=== PATIENT | male | born 1975 | race Caucasian/White ===

== ENCOUNTER 2018-03-02 22:06 | Emergency (ER) | payer MEDICAID ==
[~2018-03-02] VITALS: Ht 167.6 cm; Wt 81.0 kg
[~2018-03-02 22:06] MED LIST: FLO0.4C PO; NO HOME MEDS; ZOF4T PO
[2018-03-02 22:32] VITALS: BP 144/85
[2018-03-02] MEDS ORDERED: ketorolac trometh inj. 60 MG/2 ML VIAL IM ONE (23:00)
[2018-03-02] MEDS ORDERED: CLIN150C2 PO (23:07)
== END 2018-03-02 23:35 | disposition home or self-care (01) ==
LOC: ER 22:06
DX: L02.31 Cutaneous abscess of buttock (principal); L03.317 Cellulitis of buttock; Z90.49 Acquired absence of other specified parts of digestive tract; Z56.0 Unemployment, unspecified; Z79.899 Other long term (current) drug therapy
CPT/HCPCS: 96372; 99283; J1885

== ENCOUNTER 2018-11-13 23:53 | Emergency (ER) | payer MEDICAID ==
[~2018-11-13] VITALS: Ht 167.6 cm; Wt 80.0 kg
[2018-11-14] MEDS ORDERED: normal saline 1000ML IV soln IVB ONE ×2 (00:05)
[2018-11-14 00:46] LABS: BASOPHILS # (AUTO) 0.1 X10'3 (0-0.2); EOSINOPHILS # (AUTO) 0.2 X10'3 (0-0.9); EOSINOPHILS % (AUTO) 2.4 % (0-6); HEMATOCRIT 40.1 % (42.0-52.0); HEMOGLOBIN 13.5 g/dl (14.0-17.9); LYMPHOCYTES # (AUTO) 2.5 X10'3 (1.1-4.8); LYMPHOCYTES % (AUTO) 27.4 % (21-51); MEAN CORPUSCULAR HGB CONC 33.7 g/dL (33.0-36.5); MEAN CORPUSCULAR VOLUME 86.1 FL (78-98); MEAN PLATELET VOLUME 8.6 FL (7.4-10.4); MONOCYTES # (AUTO) 0.7 X10'3 (0-0.9); MONOCYTES % (AUTO) 7.2 % (2-12); NEUTROPHILS # (AUTO) 5.8 X10'3 (1.8-7.7); PLATELET COUNT 250 X10'3 (140-440); RED BLOOD COUNT 4.66 X10'6 (4.70-6.10); RED CELL DISTRIBUTION WIDTH 13.7 % (11.5-14.5); WHITE BLOOD COUNT 9.3 X10'3 (4.5-11.0)
[2018-11-14 00:58] LABS: ALANINE AMINOTRANSFERASE 27 U/L (12-78); ALBUMIN 3.9 G/DL (3.4-5.0); ALBUMIN/GLOBULIN RATIO 1.1 (1.1-1.5); ALKALINE PHOSPHATASE 113 IU/L (46-116); ANION GAP 7 (8-16); ASPARTATE AMINO TRANSFERASE 6 U/L (10-37); BILIRUBIN,TOTAL 0.3 MG/DL (0.1-1.0); BLOOD UREA NITROGEN 13 MG/DL (7-18); BUN/CREATININE RATIO 10.9 (5.4-32.0); CALCIUM 8.8 MG/DL (8.5-10.1); CHLORIDE 95 MMOL/L (99-107); CREATININE 1.19 MG/DL (0.60-1.10); POTASSIUM 4.1 MMOL/L (3.5-5.1); SODIUM 128 MMOL/L (135-145); TOTAL CARBON DIOXIDE 26.1 MMOL/L (24-32); TOTAL PROTEIN 7.3 G/DL (6.4-8.2); TROPONIN I < 0.04 NG/ML (0.0-0.05); eGFR 68 ML/MIN
[2018-11-14 00:58] LABS: CLARITY,URINE CLEAR (Clear); COLOR,URINE YELLOW (Yellow); GLUCOSE, URINE >=1000 mg/dl (Neg); KETONES,URINE NEGATIVE (Neg); LEUKOCYTE ESTERASE ,URINE NEGATIVE (Neg); NITRITES, URINE NEGATIVE (Neg); OCCULT BLOOD,URINE NEGATIVE (Neg); PH,URINE 5.5 (4.8-8.0); PROTEIN,URINE NEGATIVE (Neg); UROBILINOGEN,URINE 0.2 E.U/dL (0.2-1.0)
[2018-11-14 01:02] LABS: UA COLLECTION TYPE CLN CATCH MIDSTREAM
[2018-11-14 01:03] LABS: GLUCOSE 622 MG/DL (70-104)
[2018-11-14 01:04] LABS: BACTERIA,URINE NONE SEEN /HPF (Neg); RBC,URINE 0-2 /HPF (0-2); SQUAMOUS EPITHELIAL CELL,UR FEW /LPF (FEW); WBC,URINE NONE SEEN /HPF (0-4)
[2018-11-14] MEDS ORDERED: insulin regular, human 10 units/0.1 ml syringe IV ONE ×2 (01:05→03:05)
[2018-11-14] MEDS ORDERED: potassium Cl 20 mEq SR tablet PO STA (03:03)
[2018-11-14] MEDS ORDERED: normal saline 1000ml 1,000 ML IV ONE (03:05)
[2018-11-14] MEDS ORDERED: METF500T PO (03:08)
--- NOTE | 2018-11-14 03:32 | NUR ---
pt complAINING OF SOB, CHEST TIGHTNESS, AND PINS AND NEEDLES FEELING TO HANDS, REPEAT EKG PERFORMED AND DR STALLWORTH NOTIFIED.
[2018-11-14] MEDS ORDERED: LORazepam 2 mg/ml vial IV ONE (03:35)
--- NOTE | 2018-11-14 03:45 | NUR ---
PT STATES THE ANXIOUS FEELING HAS PASSED AND DENIES ANY FURTHER NEED FOR MEDICATION OR TREATMENT AT THIS TIME.
[2018-11-14 03:57] VITALS: BP 127/81
== END 2018-11-14 04:01 | disposition home or self-care (01) ==
LOC: ER 23:54
DX: E11.65 Type 2 diabetes mellitus with hyperglycemia (principal); Z86.19 Personal history of other infectious and parasitic diseases; Z87.442 Personal history of urinary calculi; Z90.49 Acquired absence of other specified parts of digestive tract; Z56.0 Unemployment, unspecified; Z79.84 Long term (current) use of oral hypoglycemic drugs; Z79.899 Other long term (current) drug therapy
CPT/HCPCS: 36415; 71045; 80053; 81001; 82948; 84484; 85025; 93005; 96361; 96374; 96376; 99284; J1815; J7030

== ENCOUNTER 2018-12-17 03:03 | Emergency (ER) | payer MEDICAID ==
[2018-12-17] MEDS ORDERED: normal saline 1000ML IV soln IVB ONE ×2 (03:20)
--- NOTE | 2018-12-17 03:29 | NUR ---
PT ASKING FOR WATER. SPOKE WITH MD, WATER GIVEN
[2018-12-17 03:30] LABS: BASOPHILS # (AUTO) 0.1 X10'3 (0-0.2); EOSINOPHILS # (AUTO) 0.2 X10'3 (0-0.9); HEMATOCRIT 41.2 % (42.0-52.0); HEMOGLOBIN 13.8 g/dl (14.0-17.9); MEAN CORPUSCULAR HEMOGLOBIN 28.8 PG (27.0-31.0); MEAN CORPUSCULAR HGB CONC 33.6 g/dL (33.0-36.5); MEAN CORPUSCULAR VOLUME 85.7 FL (78-98); MEAN PLATELET VOLUME 7.7 FL (7.4-10.4); MONOCYTES # (AUTO) 0.6 X10'3 (0-0.9); MONOCYTES % (AUTO) 8.8 % (2-12); NEUTROPHILS # (AUTO) 4.3 X10'3 (1.8-7.7); NEUTROPHILS % (AUTO) 59.2 % (42-75); PLATELET COUNT 271 X10'3 (140-440); RED BLOOD COUNT 4.81 X10'6 (4.70-6.10); RED CELL DISTRIBUTION WIDTH 13.6 % (11.5-14.5); WHITE BLOOD COUNT 7.3 X10'3 (4.5-11.0)
[2018-12-17 03:42] LABS: ALANINE AMINOTRANSFERASE 25 U/L (12-78); ALBUMIN/GLOBULIN RATIO 1.1 (1.1-1.5); ALKALINE PHOSPHATASE 113 IU/L (46-116); ANION GAP 9 (8-16); ASPARTATE AMINO TRANSFERASE 7 U/L (10-37); BILIRUBIN,TOTAL 0.3 MG/DL (0.1-1.0); BLOOD UREA NITROGEN 11 MG/DL (7-18); BUN/CREATININE RATIO 9.6 (5.4-32.0); CHLORIDE 100 MMOL/L (99-107); CREATININE 1.15 MG/DL (0.60-1.10); POTASSIUM 4.1 MMOL/L (3.5-5.1); SODIUM 135 MMOL/L (135-145); TOTAL CARBON DIOXIDE 25.7 MMOL/L (24-32); TOTAL PROTEIN 7.6 G/DL (6.4-8.2); eGFR 70 ML/MIN
[2018-12-17 03:44] LABS: GLUCOSE 489 MG/DL (70-104)
[2018-12-17 04:25] VITALS: BP 126/80
== END 2018-12-17 04:27 | disposition home or self-care (01) ==
LOC: ER 03:03
DX: E11.65 Type 2 diabetes mellitus with hyperglycemia (principal); F11.90 Opioid use, unspecified, uncomplicated; F17.200 Nicotine dependence, unspecified, uncomplicated; Z86.19 Personal history of other infectious and parasitic diseases; Z87.442 Personal history of urinary calculi; Z90.49 Acquired absence of other specified parts of digestive tract; Z56.0 Unemployment, unspecified
CPT/HCPCS: 36415; 80053; 82948; 85025; 96360; 99283; J7030; J7040

== ENCOUNTER 2020-11-11 21:14 | Emergency (ER) | payer MEDICAID ==
[~2020-11-11] VITALS: Ht 167.6 cm; Wt 79.4 kg
[2020-11-11 21:16] VITALS: BP 121/89
== END 2020-11-11 23:59 | disposition home or self-care (01) ==
LOC: ER 21:15
DX: R07.89 Other chest pain (principal); Z20.822 Contact with and (suspected) exposure to COVID-19; E11.9 Type 2 diabetes mellitus without complications; Z86.19 Personal history of other infectious and parasitic diseases; Z87.442 Personal history of urinary calculi; Z90.89 Acquired absence of other organs; Z72.89 Other problems related to lifestyle; Z56.0 Unemployment, unspecified; Z79.899 Other long term (current) drug therapy
CPT/HCPCS: 71046; 87635; 93005; 99285; C9803

== ENCOUNTER 2022-11-20 22:08 | Emergency (ER) | payer MEDICAID ==
[~2022-11-20] VITALS: Ht 167.6 cm; Wt 72.7 kg
[2022-11-20 22:22] VITALS: TEMP 98.5
[2022-11-20 23:22] LABS: BASOPHILS % (AUTO) 0.2 % (0-1); EOSINOPHILS # (AUTO) 0.1 X10'3 (0-0.9); EOSINOPHILS % (AUTO) 0.9 % (0-6); HEMATOCRIT 40.8 % (42.0-52.0); HEMOGLOBIN 13.9 g/dl (14.0-17.9); LYMPHOCYTES # (AUTO) 1.3 X10'3 (1.1-4.8); LYMPHOCYTES % (AUTO) 8.6 % (21-51); MEAN CORPUSCULAR HEMOGLOBIN 29.2 PG (27.0-31.0); MEAN CORPUSCULAR HGB CONC 34.1 g/dL (33.0-36.5); MEAN CORPUSCULAR VOLUME 85.5 FL (78-98); MEAN PLATELET VOLUME 7.7 FL (7.4-10.4); MONOCYTES # (AUTO) 1.4 X10'3 (0-0.9); MONOCYTES % (AUTO) 9.1 % (2-12); NEUTROPHILS # (AUTO) 12.4 X10'3 (1.8-7.7); NEUTROPHILS % (AUTO) 81.2 % (42-75); PLATELET COUNT 263 X10'3 (140-440); RED BLOOD COUNT 4.78 X10'6 (4.70-6.10); WHITE BLOOD COUNT 15.3 X10'3 (4.5-11.0)
[2022-11-20 23:36] LABS: ALANINE AMINOTRANSFERASE 22 U/L (12-78); ALBUMIN 4.3 G/DL (3.4-5.0); ALBUMIN/GLOBULIN RATIO 1.3 (1.1-1.5); ALKALINE PHOSPHATASE 106 IU/L (46-116); ANION GAP 7 (8-16); ASPARTATE AMINO TRANSFERASE 12 U/L (10-37); BILIRUBIN,TOTAL 0.3 MG/DL (0.1-1.0); BLOOD UREA NITROGEN 21 MG/DL (7-18); BUN/CREATININE RATIO 15.3 (10.0-20.0); CALCIUM 8.9 MG/DL (8.5-10.1); CHLORIDE 102 MMOL/L (99-107); CREATININE 1.37 MG/DL (0.60-1.10); GLUCOSE 308 MG/DL (70-104); LIPASE < 50 U/L (73-393); SODIUM 136 MMOL/L (135-145); TOTAL CARBON DIOXIDE 26.9 MMOL/L (24-32); TOTAL PROTEIN 7.7 G/DL (6.4-8.2); eGFR 56 ML/MIN
[2022-11-21] MEDS ORDERED: ondansetron/PF 4mg/2ml inj IV ONE
[2022-11-21] MEDS ORDERED: normal saline 1000ML IV soln IVB ONE
[2022-11-21 00:45] LABS: ETHANOL < 0.010 GM/DL (0.0-0.010)
[2022-11-21 00:54] LABS: CLARITY,URINE CLEAR (Clear); COLOR,URINE YELLOW (Yellow); GLUCOSE, URINE >=1000 mg/dl (Neg); KETONES,URINE NEGATIVE (Neg); LEUKOCYTE ESTERASE ,URINE NEGATIVE (Neg); NITRITES, URINE NEGATIVE (Neg); OCCULT BLOOD,URINE NEGATIVE (Neg); PROTEIN,URINE NEGATIVE (Neg); UA COLLECTION TYPE CLN CATCH MIDSTREAM; UROBILINOGEN,URINE 0.2 E.U/dL (0.2-1.0)
[2022-11-21 01:01] LABS: BACTERIA,URINE NONE SEEN /HPF (Neg); HYALINE CASTS 0-3 /LPF (NEGATIVE); MUCUS STRANDS FEW /LPF (Neg); RBC,URINE 0-2 /HPF (0-2); SQUAMOUS EPITHELIAL CELL,UR NONE SEEN /LPF (FEW); WBC,URINE 0-4 /HPF (0-4)
[2022-11-21 01:04] LABS: URINE AMPHETAMINE SCREEN POSITIVE (Neg); URINE BARBITUATE SCREEN NEGATIVE (Neg); URINE BENZODIAZEPINES SCREEN NEGATIVE (Neg); URINE CANNABINOID SCREEN NEGATIVE (Neg); URINE COCAINE SCREEN NEGATIVE (Neg); URINE METHADONE SCREEN NEGATIVE (Neg); URINE OPIATE SCREEN NEGATIVE (Neg); URINE PHENCYCLIDINE SCREEN NEGATIVE (Neg)
--- NOTE | 2022-11-21 01:36 | NUR ---
UNABLE TO OBTAIN 2ND SET OF BLOOD CULTURES. THIS RN & LOCOMOTIVE CRANE OPERATOR TRIED MULTIPLE TIMES EACH. MD AWARE.
[2022-11-21 02:42] VITALS: BP 117/80; PULSE 90; RESP 18; O2SAT 99
[2022-11-21] MEDS ORDERED: metFORMIN 500mg tablet PO ONE (03:05)
[2022-11-21] MEDS ORDERED: insulin regular, human 10 units/0.1 ml syringe SQ ONE (03:05)
[2022-11-21] MEDS ORDERED: PANT-47 PO (03:06)
[2022-11-21] MEDS ORDERED: METF-436 PO (03:06)
[2022-11-21] MEDS ORDERED: ONDA8TAB13 PO (03:06)
== END 2022-11-21 03:33 | disposition home or self-care (01) ==
LOC: ER 22:08
DX: E86.0 Dehydration (principal); E11.65 Type 2 diabetes mellitus with hyperglycemia; F19.10 Other psychoactive substance abuse, uncomplicated; R11.2 Nausea with vomiting, unspecified; N20.0 Calculus of kidney; F17.200 Nicotine dependence, unspecified, uncomplicated; F15.90 Other stimulant use, unspecified, uncomplicated; Z91.148 Patient's other noncompliance with medication regimen for other reason; Z79.899 Other long term (current) drug therapy; Z56.0 Unemployment, unspecified
CPT/HCPCS: 36415; 71045; 80053; 80305; 80320; 81001; 82009; 82948; 83690; 85025; 85610; 87040; 96361; 96372; 96374; 99285; J1815; J2405; J7030

== ENCOUNTER 2023-09-21 03:53 | Emergency (ER) | payer MEDICAID, OTHER ==
[~2023-09-21] VITALS: Ht 167.6 cm; Wt 58.0 kg
[~2023-09-21 03:53] MED LIST changes: +ASPI81TA52 PO; +GABA800T11 PO; +METF-438 PO; +PANT-47 PO; -ZOF4T PO
[2023-09-21 03:55] VITALS: TEMP 98.8
[2023-09-21 05:40] VITALS: PULSE 81
[2023-09-21] MEDS: ondansetron 4mg rapidly disintigrating tab PO ONE (05:41)
[2023-09-21] MEDS: LIDOcaine 1% W/epiNEPHrine 1:100,000 20ml vial IJ ONE (05:41)
[2023-09-21] MEDS: sulfamethoxazole/trimethoprim DS (800/160mg) tablet PO ONE (05:41)
[2023-09-21] MEDS ORDERED: SULF1TAB49 PO (06:06)
[2023-09-21] MEDS ORDERED: CEPH-585 PO (06:09)
[2023-09-21 06:30] VITALS: BP 106/71; RESP 18; O2SAT 98
== END 2023-09-21 06:33 | disposition home or self-care (01) ==
LOC: ER 03:54
DX: L02.818 Cutaneous abscess of other sites (principal); E11.9 Type 2 diabetes mellitus without complications; F15.90 Other stimulant use, unspecified, uncomplicated; Z79.82 Long term (current) use of aspirin; Z79.2 Long term (current) use of antibiotics
CPT/HCPCS: 10060; 99283